=== PATIENT | female | born 1995 | race Caucasian/White ===

== ENCOUNTER 2024-05-09 06:02 | Emergency (ER) | payer BC ==
[2024-05-09] MEDS ORDERED: Bupivacaine 0.5% 10 ML VIAL ONE (06:11)
== END 2024-05-09 06:29 | disposition home or self-care (01) ==
LOC: BURERS 06:02
DX: K02.9 Dental caries, unspecified (principal); F17.290 Nicotine dependence, other tobacco product, uncomplicated
CPT/HCPCS: 64400; J3490

== ENCOUNTER 2025-07-11 20:44 | Emergency (ER) | payer BC | END 2025-07-11 21:05 | disposition home or self-care (01) | LOC: BURERS 20:44 | DX: K04.7 Periapical abscess without sinus (principal); K08.89 Other specified disorders of teeth and supporting structures; F17.290 Nicotine dependence, other tobacco product, uncomplicated | CPT/HCPCS: 64400 ==